=== PATIENT | female | born 1955 | race Caucasian/White ===

== ENCOUNTER 2022-12-05 01:06 | Inpatient (IN) | payer MEDICARE ==
[~2022-12-05] VITALS: Ht 175.3 cm; Wt 72.7 kg
[2022-12-05] VITALS (11 sets, daily range): BP systolic 92–125; BP diastolic 45–61
[~2022-12-05 01:06] MED LIST: ALPR1TAB7 PO; ATOR-2 PO; CARV6.253 PO; CLON0.1T PO; GEMF600T89 PO; HYDR4TAB55 PO; LEVO200T8 PO; METH-603 PO; SERT-153 NG; TIZA4TAB11 PO; ZOLP10TA5 PO
[2022-12-05 01:38] LABS: BASOPHILS # (AUTO) 0.1 X10'3 (0-0.2); BASOPHILS % (AUTO) 0.8 % (0-1); EOSINOPHILS # (AUTO) 0.1 X10'3 (0-0.9); EOSINOPHILS % (AUTO) 0.8 % (0-6); HEMATOCRIT 47.2 % (35.0-45.0); HEMOGLOBIN 16.1 g/dl (12.0-16.0); LYMPHOCYTES # (AUTO) 3.7 X10'3 (1.1-4.8); MEAN CORPUSCULAR HEMOGLOBIN 31.9 PG (27.0-31.0); MEAN CORPUSCULAR HGB CONC 34.1 g/dL (33.0-36.5); MEAN CORPUSCULAR VOLUME 93.3 FL (78-98); MEAN PLATELET VOLUME 7.5 FL (7.4-10.4); MONOCYTES # (AUTO) 0.6 X10'3 (0-0.9); MONOCYTES % (AUTO) 5.4 % (2-12); PLATELET COUNT 283 X10'3 (140-440); RED BLOOD COUNT 5.06 X10'6 (4.20-5.60); RED CELL DISTRIBUTION WIDTH 12.3 % (11.5-14.5); WHITE BLOOD COUNT 11.4 X10'3 (4.5-11.0)
[2022-12-05 02:04] LABS: ALANINE AMINOTRANSFERASE 31 U/L (12-78); ALBUMIN 4.6 G/DL (3.4-5.0); ALBUMIN/GLOBULIN RATIO 1.1 (1.1-1.5); ALKALINE PHOSPHATASE 115 IU/L (46-116); ANION GAP 11 (8-16); ASPARTATE AMINO TRANSFERASE 20 U/L (10-37); BILIRUBIN,TOTAL 0.5 MG/DL (0.1-1.0); BLOOD UREA NITROGEN 12 MG/DL (7-18); BUN/CREATININE RATIO 13.8 (10.0-20.0); CALCIUM 9.8 MG/DL (8.5-10.1); CHLORIDE 101 MMOL/L (99-107); CREATININE 0.87 MG/DL (0.40-0.90); GLUCOSE 122 MG/DL (70-104); SODIUM 141 MMOL/L (135-145); TOTAL CARBON DIOXIDE 28.9 MMOL/L (24-32); TOTAL PROTEIN 8.8 G/DL (6.4-8.2); eGFR 65 ML/MIN
[2022-12-05 02:08] LABS: COLOR,URINE YELLOW (Yellow); GLUCOSE, URINE NEGATIVE (Neg); KETONES,URINE NEGATIVE (Neg); LEUKOCYTE ESTERASE ,URINE TRACE (Neg); NITRITES, URINE NEGATIVE (Neg); OCCULT BLOOD,URINE TRACE-INTACT (Neg); PH,URINE 6.5 (4.8-8.0); PROTEIN,URINE NEGATIVE (Neg); UROBILINOGEN,URINE 0.2 E.U/dL (0.2-1.0)
[2022-12-05 02:10] LABS: CLARITY,URINE SLIGHTLY CLOUDY (Clear); UA COLLECTION TYPE CLN CATCH MIDSTREAM
[2022-12-05 02:12] LABS: POTASSIUM 2.7 MMOL/L (3.5-5.1)
[2022-12-05 02:17] LABS: BACTERIA,URINE FEW /HPF (Neg); RBC,URINE 0-2 /HPF (0-2)
[2022-12-05 02:18] LABS: MUCUS STRANDS FEW /LPF (Neg); SQUAMOUS EPITHELIAL CELL,UR FEW /LPF (FEW); WBC CLUMPS,URINE FEW /HPF (NEGATIVE)
[2022-12-05] MEDS ORDERED: potassium Cl 20 mEq SR tablet PO STA (02:18)
[2022-12-05] MEDS ORDERED: cloNIDine 0.1 mg tablet PO ONE ×2 (02:20→03:50)
[2022-12-05] MEDS ORDERED: metoprolol tartrate 50mg tablet PO ONE (02:20)
[2022-12-05] MEDS ORDERED: LORazepam 2 mg/ml vial IV ONE ×2 (02:20→03:50)
[2022-12-05] MEDS ORDERED: acetaminophen 1,000mg/100ml IV 100 ML IV ONE (02:20)
[2022-12-05] MEDS ORDERED: normal saline 1000ML IV soln IVB ONE ×2 (02:25→03:55)
[2022-12-05] MEDS ORDERED: CefTRIAXone 2gm/D5W 50ml BAG 50 ML IV ONE (02:25)
[2022-12-05] MEDS ORDERED: hydrALAZINE 25 MG tablet PO STA (03:48)
[2022-12-05] MEDS ORDERED: haloperidol lactate 5mg/ml inj IM ONE (03:50)
[2022-12-05] MEDS ORDERED: morphine 4 MG/ML inj SYRINge IV ONE (03:55)
[2022-12-05] MEDS ORDERED: magnesium Cl slow-release 64mg tablet PO PRN (05:00)
[2022-12-05] MEDS ORDERED: potassium Cl 40MEQ/1/2NS 520ml 520 ML IV PRN (05:00)
[2022-12-05] MEDS ORDERED: magnesium 2GM in 50ml NS 50 ML IV PRN (05:00)
[2022-12-05] MEDS ORDERED: acetaminophen 325mg tablet PO PRN (05:00)
[2022-12-05] MEDS ORDERED: magnesium 4gm in 100ml NS 100 ML IV PRN (05:00)
[2022-12-05] MEDS ORDERED: diphenhydrAMINE 50 mg/ml inj IV PRN (05:00)
[2022-12-05] MEDS ORDERED: bisacodyl 10mg suppository rectal RC PRN (05:00)
[2022-12-05] MEDS ORDERED: acetaminophen 650mg rectal suppository RC PRN (05:00)
[2022-12-05] MEDS ORDERED: ondansetron/PF 4mg/2ml inj IV PRN (05:00)
[2022-12-05] MEDS ORDERED: diphenhydrAMINE 25mg capsule PO PRN (05:00)
[2022-12-05] MEDS ORDERED: magnesium hydroxide 30ml (MOM) UD suspension PO PRN (05:00)
[2022-12-05] MEDS ORDERED: mag hydrox/Alum hydrox/simeth 30ml oral suspension PO PRN (05:00)
[2022-12-05] MEDS ORDERED: ondansetron 4mg rapidly disintigrating tab PO PRN (05:00)
[2022-12-05] MEDS ORDERED: potassium Cl 20 mEq SR tablet PO PRN (05:00)
--- NOTE | 2022-12-05 05:04 | NUR ---
PT ASSISTED TO RESTROOM WITH WHEELCHAIR
[2022-12-05] MEDS ORDERED: nitroGLYCERIN 0.4mg SUBLingual tab SL PRN (05:05)
[2022-12-05] MEDS ORDERED: metoprolol tartrate 1mg/ml inj IV PRN (05:05)
[2022-12-05] MEDS ORDERED: aminophylline 250mg/10ml inj. IV PRN (05:05)
[2022-12-05] MEDS ORDERED: regadenoson 0.4mg/5ml syringe IV PRN (05:05)
[2022-12-05] MEDS ORDERED: lisinopril 10 MG tablet PO ONE (05:15)
[2022-12-05] MEDS: potassium cl 20mEq in 1/2 NS 1,000 ML IV SCH ×2 (05:27→15:00)
[2022-12-05 06:34] LABS: LIPASE 55 U/L (73-393); MAGNESIUM 2.1 MG/DL (1.5-2.4); POTASSIUM 3.2 MMOL/L (3.5-5.1)
[2022-12-05 06:47] LABS: URINE AMPHETAMINE SCREEN NEGATIVE (Neg); URINE BARBITUATE SCREEN NEGATIVE (Neg); URINE BENZODIAZEPINES SCREEN POSITIVE (Neg); URINE CANNABINOID SCREEN POSITIVE (Neg); URINE COCAINE SCREEN NEGATIVE (Neg); URINE METHADONE SCREEN NEGATIVE (Neg); URINE OPIATE SCREEN NEGATIVE (Neg); URINE PHENCYCLIDINE SCREEN NEGATIVE (Neg)
[2022-12-05 07:23] LABS: APTT 28 SECONDS (22-32); D-DIMER 0.35 MG/L FEU (0-0.50)
--- NOTE | 2022-12-05 07:25 | NUR ---
Patient instructed to be NPO as she would have to go for stress test today. Per patient, her last intake was 19:00 last night.
[2022-12-05] MEDS: pantoprazole 40mg Tablet.DR PO SCH ×2 (07:30→13:30)
[2022-12-05] MEDS: heparin, porcine 5000 units/ml vial SQ SCH ×2 (08:00→20:55)
[2022-12-05] MEDS: aspirin 81mg, enteric-coated 1 TAB TABLET.DR PO SCH ×2 (08:00→13:30)
[2022-12-05] MEDS: K and/or MAG REPLACEMENT MC SCH ×2 (08:00→20:00)
[2022-12-05] MEDS: docusate sod 100mg capsule PO SCH ×2 (08:00→20:55)
[2022-12-05 09:22] LABS: HEMOGLOBIN A1C 5.1 % (4.5-6.2)
[2022-12-05 09:27] LABS: CHOLESTEROL 218 MG/DL (0-200); HDL CHOLESTEROL 44 MG/DL (35-60); LDL CHOLESTEROL 147 MG/DL (50-100); TRIGLYCERIDES 151 MG/DL (20-135)
--- NOTE | 2022-12-05 09:48 | NUR ---
Patient not in the room, went to Stress Test
[2022-12-05] MEDS ORDERED: DULO20CA50 PO (11:29)
[2022-12-05] MEDS ORDERED: LEVO175T2 PO (11:29)
[2022-12-05] MEDS ORDERED: CLON0.1T PO (13:25)
[2022-12-05] MEDS ORDERED: TRAZ-251 PO (13:25)
[2022-12-05] MEDS ORDERED: GABA600T PO (13:25)
[2022-12-05] MEDS ORDERED: BUPR300F3 PO (13:25)
[2022-12-05] MEDS ORDERED: TRIA1TAB3 PO (13:25)
[2022-12-05] MEDS: potassium Cl 20 mEq SR tablet PO PRN ×2 (13:28→17:17)
[2022-12-05] MEDS ORDERED: cloNIDine 0.1 mg tablet PO PRN (13:40)
[2022-12-05] MEDS ORDERED: iohexol 350MG/ML 100ml bottle IV ONE (13:56)
[2022-12-05] MEDS: tizanidine 4mg tablet PO SCH ×2 (14:50→20:55)
[2022-12-05] MEDS: acetaminophen 325mg tablet PO PRN (16:53)
[2022-12-05] MEDS: ALPRAZolam 0.5mg tablet PO PRN ×2 (16:54→17:17)
[2022-12-05] MEDS: gabapentin 300mg capsule PO SCH ×2 (16:54→23:39)
[2022-12-05] MEDS: carvedilol 6.25mg tablet PO SCH (20:00)
[2022-12-05] MEDS: BUPRENORPHINE 300 MCG PO SCH (20:57)
[2022-12-05] MEDS ORDERED: traZODone 50mg tablet PO SCH (21:00)
[2022-12-05] MEDS ORDERED: temazepam 15mg capsule PO PRN (21:00)
[2022-12-06] MEDS: tizanidine 4mg tablet PO SCH ×3 (01:30→13:35)
[2022-12-06] MEDS: potassium cl 20mEq in 1/2 NS 1,000 ML IV SCH ×2 (01:30→13:36)
[2022-12-06 02:00] VITALS: BP 95/49
[2022-12-06] MEDS: ALPRAZolam 0.5mg tablet PO PRN ×2 (02:14→09:15)
[2022-12-06 06:00] VITALS: BP 147/86
[2022-12-06 06:39] LABS: BASOPHILS % (AUTO) 0.3 % (0-1); EOSINOPHILS # (AUTO) 0.1 X10'3 (0-0.9); EOSINOPHILS % (AUTO) 1.7 % (0-6); HEMOGLOBIN 12.9 g/dl (12.0-16.0); LYMPHOCYTES # (AUTO) 2.3 X10'3 (1.1-4.8); LYMPHOCYTES % (AUTO) 38.8 % (21-51); MEAN CORPUSCULAR HEMOGLOBIN 31.5 PG (27.0-31.0); MEAN CORPUSCULAR HGB CONC 33.1 g/dL (33.0-36.5); MEAN CORPUSCULAR VOLUME 95.1 FL (78-98); MEAN PLATELET VOLUME 7.6 FL (7.4-10.4); MONOCYTES # (AUTO) 0.3 X10'3 (0-0.9); MONOCYTES % (AUTO) 5.7 % (2-12); NEUTROPHILS # (AUTO) 3.2 X10'3 (1.8-7.7); NEUTROPHILS % (AUTO) 53.5 % (42-75); PLATELET COUNT 157 X10'3 (140-440); RED CELL DISTRIBUTION WIDTH 12.3 % (11.5-14.5)
--- NOTE | 2022-12-06 06:59 | NUR ---
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
[2022-12-06 07:00] LABS: ALANINE AMINOTRANSFERASE 22 U/L (12-78); ALBUMIN 3.2 G/DL (3.4-5.0); ALBUMIN/GLOBULIN RATIO 1.1 (1.1-1.5); ALKALINE PHOSPHATASE 63 IU/L (46-116); ANION GAP 8 (8-16); ASPARTATE AMINO TRANSFERASE 21 U/L (10-37); BILIRUBIN,TOTAL 0.4 MG/DL (0.1-1.0); BLOOD UREA NITROGEN 4 MG/DL (7-18); BUN/CREATININE RATIO 5.6 (10.0-20.0); CALCIUM 8.6 MG/DL (8.5-10.1); CHLORIDE 109 MMOL/L (99-107); CHOL/HDL RATIO 5.5 (0.00-4.99); CHOLESTEROL 191 MG/DL (0-200); CREATININE 0.71 MG/DL (0.40-0.90); GLUCOSE 96 MG/DL (70-104); HDL CHOLESTEROL 35 MG/DL (35-60); LDL CHOLESTEROL 119 MG/DL (50-100); PHOSPHORUS 3.3 MG/DL (2.3-4.5); POTASSIUM 3.8 MMOL/L (3.5-5.1); SODIUM 143 MMOL/L (135-145); TOTAL CARBON DIOXIDE 26.5 MMOL/L (24-32); TOTAL PROTEIN 6.2 G/DL (6.4-8.2); TRIGLYCERIDES 227 MG/DL (20-135); eGFR 82 ML/MIN
[2022-12-06] MEDS ORDERED: levoTHYROXINE 100mcg tablet PO SCH (08:00)
[2022-12-06] MEDS ORDERED: duloxetine 20mg capsule.DR PO SCH (08:00)
[2022-12-06] MEDS: K and/or MAG REPLACEMENT MC SCH (08:00)
[2022-12-06] MEDS ORDERED: triamterene/HCTZ 37.5/25mg tablet PO SCH (08:00)
[2022-12-06] MEDS: docusate sod 100mg capsule PO SCH (09:00)
[2022-12-06] MEDS: aspirin 81mg, enteric-coated 1 TAB TABLET.DR PO SCH (09:01)
[2022-12-06] MEDS: carvedilol 6.25mg tablet PO SCH (09:01)
[2022-12-06] MEDS: gabapentin 300mg capsule PO SCH (09:01)
[2022-12-06] MEDS: acetaminophen 325mg tablet PO PRN (09:17)
[2022-12-06] MEDS: heparin, porcine 5000 units/ml vial SQ SCH (09:18)
[2022-12-06] MEDS: BUPRENORPHINE 300 MCG PO SCH (09:33)
[2022-12-06 11:00] VITALS: BP 112/58
[2022-12-06] MEDS ORDERED: CefTRIAXone/D5W-Rocephin 1gm 50 ML IV SCH (12:00)
[2022-12-06] MEDS: pantoprazole 40mg Tablet.DR PO SCH (13:28)
[2022-12-06] MEDS ORDERED: ASPI-1071 PO (15:38)
[2022-12-06] MEDS ORDERED: CEFD300C3 PO (15:38)
[2022-12-06] MEDS ORDERED: PANT40TA54 PO (15:38)
[2022-12-06] MEDS ORDERED: POTA-207 PO (15:38)
[2022-12-06] MEDS ORDERED: LACT1CAP74 PO (15:38)
[2022-12-06] MEDS ORDERED: ROSU40TA PO (15:38)
--- NOTE | 2022-12-06 17:47 | NUR ---
Discharged with instructions for after care and follow up. Mother is driving her home.
== END 2022-12-06 17:18 | disposition home or self-care (01) | DRG 305 ==
LOC: ER 01:07 → ED HOLD 05:00 → PCU 3S 15:50
PROVIDERS: ADMIT Family Medicine; ATTEND Family Medicine
PROC: 4A02XM4 Measurement of Cardiac Total Activity, External Approach (ICD-10-PCS; principal; 2022-12-05)
PROC: 3E073KZ Introduction of Other Diagnostic Substance into Coronary Artery, Percutaneous Approach (ICD-10-PCS; 2022-12-05)
PROC: B3251ZZ Computerized Tomography (CT Scan) of Bilateral Common Carotid Arteries using Low Osmolar Contrast (ICD-10-PCS; 2022-12-05)
PROC: B32G1ZZ Computerized Tomography (CT Scan) of Bilateral Vertebral Arteries using Low Osmolar Contrast (ICD-10-PCS; 2022-12-05)
PROC: B32R1ZZ Computerized Tomography (CT Scan) of Intracranial Arteries using Low Osmolar Contrast (ICD-10-PCS; 2022-12-05)
PROC: B3281ZZ Computerized Tomography (CT Scan) of Bilateral Internal Carotid Arteries using Low Osmolar Contrast (ICD-10-PCS; 2022-12-05)
DX: I16.1 Hypertensive emergency (principal); N39.0 Urinary tract infection, site not specified; E03.9 Hypothyroidism, unspecified; E78.00 Pure hypercholesterolemia, unspecified; E87.6 Hypokalemia; G89.4 Chronic pain syndrome; I11.0 Hypertensive heart disease with heart failure; F10.10 Alcohol abuse, uncomplicated; I25.10 Atherosclerotic heart disease of native coronary artery without angina pectoris; I65.22 Occlusion and stenosis of left carotid artery; F41.9 Anxiety disorder, unspecified; I50.9 Heart failure, unspecified; K57.90 Diverticulosis of intestine, part unspecified, without perforation or abscess without bleeding; K76.0 Fatty (change of) liver, not elsewhere classified; M79.7 Fibromyalgia; Z79.891 Long term (current) use of opiate analgesic; I25.2 Old myocardial infarction; Z79.899 Other long term (current) drug therapy; Z79.82 Long term (current) use of aspirin; Z88.8 Allergy status to other drugs, medicaments and biological substances; Z90.49 Acquired absence of other specified parts of digestive tract
CPT/HCPCS: 36415; 70450; 70496; 70498; 70551; 71045; 78452; 80053; 80061; 80305; 81001; 83036; 83690; 83735; 83880; 84100; 84132; 84439; 84443; 84484; 85025; 85379; 85610; 85730; 87077; 87081; 87088; 87186; 93005; 93017; 99285; A6258; A9500; G0378; J0131; J0696; J1630; J1644; J2060; J2270; J2785; J3480; J3490; J7030; J7040; Q9967

== ENCOUNTER 2024-02-15 11:49 | Emergency (ER) | payer MEDICARE ==
[~2024-02-15] VITALS: Ht 175.3 cm; Wt 70.5 kg
[~2024-02-15 11:49] MED LIST changes: +ALPR-324 PO; +ASPI-1071 PO; -ATOR-2 PO; +BUPR300F3 PO; +CARV6.252 PO; +CLON-418 PO; +DULO20CA50 PO; +GABA600T PO; +GABA600T13 PO; -GEMF600T89 PO; -HYDR4TAB55 PO; +LACT1CAP74 PO; +LEVO175T2 PO; -METH-603 PO; +PANT-47 PO; +PANT40TA54 PO; +POTA-207 PO; +ROSU40TA PO; -SERT-153 NG; +TIZA4CAP PO; +TRAZ-251 PO; +TRIA1CAP88 PO; +TRIA1TAB3 PO; -ZOLP10TA5 PO
[2024-02-15 12:06] VITALS: TEMP 97.8
[2024-02-15 12:38] LABS: BASOPHILS % (AUTO) 0.2 % (0-1); EOSINOPHILS # (AUTO) 0.1 X10'3 (0-0.9); EOSINOPHILS % (AUTO) 0.7 % (0-6); HEMATOCRIT 48.2 % (35.0-45.0); HEMOGLOBIN 16.1 g/dl (12.0-16.0); LYMPHOCYTES # (AUTO) 2.1 X10'3 (1.1-4.8); LYMPHOCYTES % (AUTO) 24.5 % (21-51); MEAN CORPUSCULAR HEMOGLOBIN 31.9 PG (27.0-31.0); MEAN CORPUSCULAR HGB CONC 33.5 g/dL (33.0-36.5); MEAN CORPUSCULAR VOLUME 95.4 FL (78-98); MONOCYTES # (AUTO) 0.5 X10'3 (0-0.9); MONOCYTES % (AUTO) 5.3 % (2-12); NEUTROPHILS % (AUTO) 69.3 % (42-75); PLATELET COUNT 256 X10'3 (140-440); RED BLOOD COUNT 5.05 X10'6 (4.20-5.60); RED CELL DISTRIBUTION WIDTH 12.7 % (11.5-14.5); WHITE BLOOD COUNT 8.6 X10'3 (4.5-11.0)
[2024-02-15 12:39] LABS: ALANINE AMINOTRANSFERASE 20 U/L (12-78); ALBUMIN 4.3 G/DL (3.4-5.0); ALBUMIN/GLOBULIN RATIO 1.2 (1.1-1.5); ALKALINE PHOSPHATASE 81 IU/L (46-116); ANION GAP 10 (8-16); ASPARTATE AMINO TRANSFERASE 19 U/L (10-37); BILIRUBIN,TOTAL 0.5 MG/DL (0.1-1.0); BLOOD UREA NITROGEN 6 MG/DL (7-18); BUN/CREATININE RATIO 6.3 (10.0-20.0); CALCIUM 9.5 MG/DL (8.5-10.1); CHLORIDE 102 MMOL/L (99-107); CREATININE 0.96 MG/DL (0.40-0.90); GLUCOSE 113 MG/DL (70-104); POTASSIUM 3.4 MMOL/L (3.5-5.1); SODIUM 137 MMOL/L (135-145); TOTAL CARBON DIOXIDE 24.9 MMOL/L (24-32); TOTAL PROTEIN 7.8 G/DL (6.4-8.2); eCRCL 58 ML/MIN; eGFR 58 ML/MIN
[2024-02-15 12:49] LABS: PRO BRAIN NATRIURETIC PEPTIDE 88 PG/ML (0-125)
[2024-02-15] MEDS: ketorolac trometh 15mg/ml vial 15 MG/ML ML IM ONE (13:29)
[2024-02-15] MEDS: LORazepam 1 MG tablet PO ONE (14:27)
[2024-02-15 15:04] VITALS: BP 155/98; PULSE 89; RESP 12; O2SAT 94
== END 2024-02-15 15:03 | disposition home or self-care (01) ==
LOC: ER 11:50
DX: I10 Essential (primary) hypertension (principal); R07.89 Other chest pain; R51.9 Headache, unspecified; Z88.8 Allergy status to other drugs, medicaments and biological substances; Z79.82 Long term (current) use of aspirin; Z79.899 Other long term (current) drug therapy
CPT/HCPCS: 36415; 71045; 80053; 83880; 84484; 85025; 93005; 96372; 99285; J1885

== ENCOUNTER 2024-03-29 12:23 | Outpatient (CLI) | payer MEDICARE ==
[~2024-03-29 12:23] MED LIST changes: +GABA-1405 PO; -GABA600T13 PO
== END 2024-03-29 23:59 | disposition home or self-care (01) ==
LOC: VAS 12:23
PROVIDERS: ATTEND Surgery
DX: I65.23 Occlusion and stenosis of bilateral carotid arteries (principal); I10 Essential (primary) hypertension
CPT/HCPCS: 93880

== ENCOUNTER → 2024-04-12 | Outpatient (CLI) | payer MEDICARE ==
[2024-04-12] VITALS (21 sets, daily range): BP systolic 76–154; BP diastolic 48–97; PULSE 66–85
== END | disposition home or self-care (01) ==
LOC: CARD DIAG 08:22
PROVIDERS: ATTEND Internal Medicine Cardiovascular Disease
DX: R55 Syncope and collapse (principal); R42 Dizziness and giddiness
CPT/HCPCS: 93660

== ENCOUNTER 2024-04-20 13:30 | Outpatient (CLI) | payer MEDICARE ==
[2024-04-20 14:43] LABS: ALBUMIN 3.6 G/DL (3.4-5.0); ANION GAP 5 (8-16); BLOOD UREA NITROGEN 8 MG/DL (7-18); BUN/CREATININE RATIO 8.2 (10.0-20.0); CALCIUM 8.6 MG/DL (8.5-10.1); CHLORIDE 100 MMOL/L (99-107); CREATININE 0.97 MG/DL (0.40-0.90); GLUCOSE 117 MG/DL (70-104); POTASSIUM 4.2 MMOL/L (3.5-5.1); SODIUM 137 MMOL/L (135-145); TOTAL CARBON DIOXIDE 32.3 MMOL/L (24-32); eGFR 57 ML/MIN
[2024-04-20] MEDS ORDERED: iohexol 350MG/ML 100ml bottle IV ONE (14:47)
== END 2024-04-20 23:59 | disposition home or self-care (01) ==
LOC: RAD 13:30
PROVIDERS: ATTEND Surgery
DX: I65.23 Occlusion and stenosis of bilateral carotid arteries (principal); I10 Essential (primary) hypertension
CPT/HCPCS: 36415; 70496; 70498; 71275; 80048; Q9967

== ENCOUNTER 2024-06-03 13:46 | Outpatient (CLI) | payer MEDICARE ==
[~2024-06-03 13:46] MED LIST changes: +iohexol 300mg/ml 100ml inj. ONE
[2024-06-03 14:24] LABS: ALBUMIN 3.9 G/DL (3.4-5.0); ANION GAP 8 (8-16); BLOOD UREA NITROGEN 7 MG/DL (7-18); BUN/CREATININE RATIO 8.8 (10.0-20.0); CALCIUM 9.1 MG/DL (8.5-10.1); CHLORIDE 101 MMOL/L (99-107); GLUCOSE 122 MG/DL (70-104); SODIUM 137 MMOL/L (135-145); TOTAL CARBON DIOXIDE 27.9 MMOL/L (24-32); eGFR 71 ML/MIN
[2024-06-03 14:25] LABS: POTASSIUM 4.3 MMOL/L (3.5-5.1)
== END 2024-06-03 23:59 | disposition home or self-care (01) ==
LOC: RAD 13:46
PROVIDERS: ATTEND Surgery Vascular Surgery
DX: R55 Syncope and collapse (principal); I10 Essential (primary) hypertension; Z90.49 Acquired absence of other specified parts of digestive tract
CPT/HCPCS: 36415; 74178; 80048; Q9967

== ENCOUNTER 2024-11-08 13:03 | Outpatient (CLI) | payer MEDICARE ==
[~2024-11-08 13:03] MED LIST changes: -iohexol 300mg/ml 100ml inj. ONE
--- NOTE | 2024-11-08 15:07 | VASCULAR REPORT ---
Carotid Duplex Date: 11/08/2024 01:29 PM Clinical History: syncope Comparison: VASC VL CAROTID on DOS: 03/29/24 Technique: Duplex Doppler evaluation of the extracranial carotid and vertebral arteries including col or Doppler and spectral/pulsed waveform analysis was performed. Findings: RIGHT SIDE: The peak systolic velocities are 100 cm/s in the distal CCA and 135 cm/s in the proximal ICA.The ICA/ CCA ratio is 1.35. The external carotid artery is patent with peak systolic velocity of 207 cm/s proximally. The subclavian artery is patent with peak systolic velocity of 109 cm/s proximally. Vertebral artery appears occluded. LEFT SIDE: The peak systolic velocities are 77 cm/s in the distal CCA and 117cm/s in the proximal ICA. The ICA /CCA ratio is 1.51. The external carotid artery is patent with peak systolic velocity of 504 cm/s proximally. The subclavian artery is patent with peak systolic velocity of 144 cm/s proximally. There is appropriate antegrade flow in the left vertebral artery. IMPRESSION: Left external carotid artery appears to be greater than 50% stenosis. Heterogeneous irregular plaque visualized at the carotid artery bifurcation extending into the proximal internal carotid arteries bi laterally right greater than left. There is also severe. Heterogeneous plaque visualized in the prox imal left external carotid artery. Less than 50% stenosis visualized in the internal carotid arteries bilaterally however, lesion in the right internal carotid artery appears to be approaching 50% stenosis less than 50% stenosis in the r ight external carotid artery and common carotid arteries bilaterally. The left external carotid arter y artery displaced a greater than 50% stenosis, possible near occlusion. The right vertebral artery appears occluded. Reference: Radiology 2003; 229:[id number]
== END 2024-11-08 23:59 | disposition home or self-care (01) ==
LOC: VAS 13:03
PROVIDERS: ATTEND Internal Medicine Cardiovascular Disease
DX: I65.23 Occlusion and stenosis of bilateral carotid arteries (principal); R55 Syncope and collapse
CPT/HCPCS: 93880